=== PATIENT | male | born 1985 | race Caucasian/White ===

== ENCOUNTER 2024-02-24 17:09 | Inpatient (IN) | payer OTHER, MEDICAID ==
[~2024-02-24] VITALS: Ht 160 cm; Wt 77.6 kg
[2024-02-24] MEDS: ONDANSETRON HCL 4MG/2ML INJ IV STA (18:00)
[2024-02-24] MEDS: MORPHINE SULFATE 4 MG/ML INJ (FOR IV/IM USE) IV STA (18:00)
[2024-02-24 18:26] LABS: CHLORIDE 101 mEq/L (98-107); POTASSIUM 3.7 mEq/L (3.5-5.1); SODIUM 137 mEq/L (136-145)
[2024-02-24 18:27] LABS: CALCIUM 7.9 mg/dL (8.7-10.4); CARBON DIOXIDE 23 mEq/L (21-32)
[2024-02-24 18:32] LABS: CREATININE 2.2 mg/dL (0.6-1.3); GLUCOSE 141 mg/dL (70-105); UREA NITROGEN BLOOD 25 mg/dL (9-23)
[2024-02-24 18:33] LABS: AMMONIA 45 uMol/L (<32); ETHANOL BLOOD 300 mg/dL (<10)
[2024-02-24 18:34] LABS: ALANINE AMINOTRANSFERASE 26 IU/L (10-49); ALBUMIN 2.8 g/dL (3.2-4.8); ASPARTATE AMINOTRANSFERASE 133 IU/L (<34); BILIRUBIN DIRECT > 15.0 mg/dL (<=3.0)
[2024-02-24 18:35] LABS: BILIRUBIN TOTAL 25.8 mg/dL (0.1-1.0); TROPONIN I HIGH SENSITIVITY < 4 ng/L (3.0-53)
[2024-02-24 19:10] LABS: BASOPHILS % 0.3 % (0.0-2.0); DIFFERENTIAL COMMENT 0; EOSINOPHILS % 0.6 % (0.0-5.0); HEMATOCRIT. 33.2 % (42.0-52.0); HEMOGLOBIN. 11.5 g/dL (14.0-18.0); LYMPHOCYTES % 11.8 % (20.0-50.0); MEAN CORPUSCULAR HEMOGLOBIN 34.7 pg (28.0-32.0); MEAN CORPUSCULAR HGB CONC 34.5 g/dL (31.0-37.0); MEAN CORPUSCULAR VOLUME 100.4 fL (80.0-94.0); MONOCYTES % 1.5 % (2.0-8.0); NEUTROPHILS % 85.8 % (40.0-76.0); PLATELET 212 x1000/uL (130-400); RED BLOOD CELL COUNT 3.31 mill/uL (4.7-6.1); RED CELL DISTRIBUTION WIDTH 19.5 % (11.6-14.6); WHITE BLOOD COUNT 14.1 x1000/uL (4.5-11.0)
[2024-02-24] MEDS: CEFTRIAXONE 1GM/50ML 50 ML IV ONE (19:27)
[2024-02-24] MEDS: LACTULOSE 20G/30ML UDC PO ONE (20:00)
[2024-02-25 08:00] VITALS: BP 147/64; PULSE 74; TEMP 36.33624; O2SAT 98
[2024-02-25 12:00] VITALS: BP 140/67; PULSE 68; TEMP 36.72516; O2SAT 96
[2024-02-25 15:46] VITALS: BP 121/59; PULSE 111; RESP 16; TEMP 36.696
[2024-02-25 16:00] VITALS: BP_SYST 111; BP_SYST 127; BP_DIAS 62; BP_DIAS 73; PULSE 119; PULSE 90; RESP 18; TEMP 36.6696; O2SAT 97; O2SAT 98
[2024-02-25 18:34] LABS: HEPATITIS B SURFACE ANTIGEN NEGATIVE (Negative)
[2024-02-25 18:56] LABS: HEPATITIS C AB NON REACTIVE (Neg) (Negative)
[2024-02-25] MEDS: PIPERACILLIN/TAZO 3.375G/50ML 50 ML IV SCH (18:56)
[2024-02-25 20:00] VITALS: BP 111/65; PULSE 125; RESP 20; TEMP 37.503; O2SAT 98
[2024-02-25] MEDS: CHLORDIAZEPOXIDE 25MG CAPSULE PO SCH (21:19)
[2024-02-26] VITALS: BP 107/60; PULSE 129; RESP 19; RESP 20; TEMP 36.89184; O2SAT 97
[2024-02-26 04:00] VITALS: BP 106/55; PULSE 127; RESP 18; TEMP 36.78072; O2SAT 96
[2024-02-26 08:21] LABS: INR 1.3; PARTIAL THROMBOPLASTIN TIME 43.6 sec (23.4-31.0); PROTHROMBIN TIME 14.6 sec (9.6-11.0)
[2024-02-26 08:38] LABS: POTASSIUM 3.2 mEq/L (3.5-5.1)
[2024-02-26 08:39] LABS: CALCIUM 7.9 mg/dL (8.7-10.4)
[2024-02-26 08:58] VITALS: BP 102/60; PULSE 142; RESP 1; RESP 17; TEMP 37.00296; O2SAT 98
[2024-02-26] MEDS: DILTIAZEM HCL 30MG TABLET PO NR (09:02)
[2024-02-26 09:13] LABS: HEMATOCRIT. 27.6 % (42.0-52.0); HEMOGLOBIN. 9.7 g/dL (14.0-18.0); MEAN CORPUSCULAR HGB CONC 35.2 g/dL (31.0-37.0); MEAN CORPUSCULAR VOLUME 99.5 fL (80.0-94.0); MEAN PLATELET VOLUME 9.6 fl (7.4-10.4); PLATELET 118 x1000/uL (130-400); RED BLOOD CELL COUNT 2.77 mill/uL (4.7-6.1); RED CELL DISTRIBUTION WIDTH 19.5 % (11.6-14.6)
[2024-02-26 09:18] LABS: DIFFERENTIAL COMMENT 1
[2024-02-26 09:50] LABS: CREATININE 3.3 mg/dL (0.6-1.3)
[2024-02-26] MEDS: LORAZEPAM 1MG TABLET PO PRN (10:22)
[2024-02-26] MEDS: DEXT 5%/0.9% NACL 1,000 ML IV SCH (10:22)
[2024-02-26 12:00] VITALS: BP 100/51; PULSE 113; RESP 17; TEMP 37.00296; O2SAT 96
[2024-02-26] MEDS: DILTIAZEM HCL 30MG TABLET PO SCH (14:00)
[2024-02-26 15:33] VITALS: BP 101/52; PULSE 118; RESP 17; TEMP 36.89184
[2024-02-26] MEDS: AZITHROMYCIN 500 MG TABLET PO NR (15:44)
[2024-02-26] MEDS: POTASSIUM CHLORIDE 20MEQ TABLET SR PO NR (15:44)
[2024-02-26 15:55] LABS: CLARITY URINE CLOUDY (CLEAR); COLOR URINE DARK YELLOW (YELLOW); GLUCOSE URINE TRACE (NEGATIVE); KETONES URINE NEGATIVE (NEGATIVE); LEUKOCYTE ESTERASE URINE 1+ (NEGATIVE); NITRITE URINE POSITIVE (NEGATIVE); OCCULT BLOOD URINE TRACE (NEGATIVE); PH URINE 5.5 (4.5-8.0); PROTEIN URINE 1+ (NEGATIVE); SPECIFIC GRAVITY URINE 1.018 (1.005-1.030)
[2024-02-26 16:38] LABS: BACTERIA URINE 1+; RBC URINE 0-2 /hpf (0-2); SQUAMOUS EPITHELIAL CELL URINE 1+ /lpf (RARE/1+)
[2024-02-26 16:39] LABS: COARSE GRANULAR CASTS URINE 0-5 /lpf; FINE GRANULAR CASTS URINE 0-5 /lpf; RENAL EPITHELIAL CELLS URINE 1+ /lpf
[2024-02-26 20:00] VITALS: BP 100/48; PULSE 119; RESP 19; TEMP 37.39188
[2024-02-26 23:30] LABS: BODY FLUID RBC 975 /cu mm (0-2000); BODY FLUID WBC 2450 /cu mm (0-200)
[2024-02-26 23:31] LABS: BODY FLUID MONOCYTES 4 %
[2024-02-27 07:45] LABS: CHLORIDE 97 mEq/L (98-107); POTASSIUM 3.3 mEq/L (3.5-5.1); SODIUM 129 mEq/L (136-145)
[2024-02-27 07:46] LABS: CARBON DIOXIDE 22 mEq/L (21-32)
[2024-02-27 07:51] LABS: CREATININE 3.7 mg/dL (0.6-1.3); GLUCOSE 90 mg/dL (70-105); UREA NITROGEN BLOOD 50 mg/dL (9-23)
[2024-02-27 07:54] LABS: PHOSPHORUS 2.7 mg/dL (2.5-4.9)
[2024-02-27 08:00] VITALS: BP 105/54; PULSE 129; RESP 19; TEMP 37.66968; O2SAT 96
[2024-02-27 08:09] LABS: BASOPHILS % 1.9 % (0.0-2.0); EOSINOPHILS % 0.7 % (0.0-5.0); HEMATOCRIT. 28.6 % (42.0-52.0); HEMOGLOBIN. 10.1 g/dL (14.0-18.0); LYMPHOCYTES % 7.8 % (20.0-50.0); MEAN CORPUSCULAR HEMOGLOBIN 35.2 pg (28.0-32.0); MEAN CORPUSCULAR HGB CONC 35.4 g/dL (31.0-37.0); MEAN CORPUSCULAR VOLUME 99.5 fL (80.0-94.0); MEAN PLATELET VOLUME 9.4 fl (7.4-10.4); MONOCYTES % 9.5 % (2.0-8.0); NEUTROPHILS % 80.1 % (40.0-76.0); PLATELET 130 x1000/uL (130-400); RED BLOOD CELL COUNT 2.87 mill/uL (4.7-6.1); RED CELL DISTRIBUTION WIDTH 19.2 % (11.6-14.6)
[2024-02-27] MEDS: AZITHROMYCIN 250 MG TABLET PO SCH (10:23)
[2024-02-27] MEDS: POTASSIUM CHLORIDE 20MEQ TABLET SR PO NR (10:23)
[2024-02-27] MEDS: MULTIVITAMINS,THER W-MINERALS TABLET PO SCH (11:38)
[2024-02-27] MEDS: SODIUM CHLORIDE 0.9% 500 ML IV NR (11:38)
[2024-02-27] MEDS: THIAMINE HCL 100MG TABLET PO SCH (11:38)
[2024-02-27] MEDS: FOLIC ACID 1MG TABLET PO SCH (11:38)
[2024-02-27 12:00] VITALS: BP 98/55; PULSE 126; RESP 19; TEMP 38.00304; O2SAT 95
[2024-02-27] MEDS: ACETAMINOPHEN 325MG TABLET PO PRN (12:18)
[2024-02-27] MEDS: DILTIAZEM HCL 30MG TABLET PO SCH (14:00)
[2024-02-27 15:10] LABS: ANISOCYTOSIS 2+; PLATELET ESTIMATE SLIGHTLY DECREASED; TARGET CELLS 1+
[2024-02-27 16:00] VITALS: BP 111/63; PULSE 117; RESP 19; TEMP 37.503; O2SAT 97
[2024-02-27 16:50] LABS: AMMONIA 37 uMol/L (<32)
[2024-02-27] MEDS: LACTULOSE 20G/30ML UDC PO SCH (17:29)
[2024-02-27 20:00] VITALS: BP 105/63; PULSE 122; RESP 18; TEMP 37.11408; O2SAT 98
[2024-02-28] VITALS (9 sets, daily range): BP systolic 83–105; BP diastolic 39–63; PULSE 97–119; RESP 14–21; TEMP 36.61404–37.05852; O2SAT 95–100
[2024-02-28 07:09] LABS: AMMONIA 22 uMol/L (<32); INR 1.5; PROTHROMBIN TIME 16.5 sec (9.6-11.0)
[2024-02-28 07:24] LABS: CHLORIDE 101 mEq/L (98-107); POTASSIUM 3.1 mEq/L (3.5-5.1); SODIUM 131 mEq/L (136-145)
[2024-02-28 07:25] LABS: CALCIUM 7.5 mg/dL (8.7-10.4); CARBON DIOXIDE 15 mEq/L (21-32)
[2024-02-28 07:30] LABS: GLUCOSE 137 mg/dL (70-105)
[2024-02-28 07:31] LABS: UREA NITROGEN BLOOD 64 mg/dL (9-23)
[2024-02-28 07:32] LABS: ALANINE AMINOTRANSFERASE 25 IU/L (10-49); ALBUMIN 2.2 g/dL (3.2-4.8); ASPARTATE AMINOTRANSFERASE 70 IU/L (<34)
[2024-02-28 07:33] LABS: BILIRUBIN DIRECT > 15.0 mg/dL (<=3.0); BILIRUBIN TOTAL 25.1 mg/dL (0.1-1.0); PHOSPHORUS 4.1 mg/dL (2.5-4.9); PROTEIN TOTAL 6.3 g/dL (6.0-8.3)
[2024-02-28 08:09] LABS: BASOPHILS % 0.8 % (0.0-2.0); DIFFERENTIAL COMMENT 0; EOSINOPHILS % 1.2 % (0.0-5.0); HEMATOCRIT. 25.3 % (42.0-52.0); HEMOGLOBIN. 8.9 g/dL (14.0-18.0); LYMPHOCYTES % 7.8 % (20.0-50.0); MEAN CORPUSCULAR HEMOGLOBIN 35.2 pg (28.0-32.0); MEAN CORPUSCULAR HGB CONC 35.1 g/dL (31.0-37.0); MEAN CORPUSCULAR VOLUME 100.5 fL (80.0-94.0); MEAN PLATELET VOLUME 9.2 fl (7.4-10.4); MONOCYTES % 10.6 % (2.0-8.0); NEUTROPHILS % 79.6 % (40.0-76.0); PLATELET 114 x1000/uL (130-400); RED BLOOD CELL COUNT 2.52 mill/uL (4.7-6.1); RED CELL DISTRIBUTION WIDTH 19.7 % (11.6-14.6); WHITE BLOOD COUNT 16.6 x1000/uL (4.5-11.0)
[2024-02-28] MEDS: POTASSIUM CHLORIDE 20MEQ/PACKET PO NR (08:56)
[2024-02-28] MEDS: SODIUM BICARBONATE 650MG TABLET PO SCH (08:57)
[2024-02-28] MEDS: PIPERACILLIN/TAZO 3.375G/50ML 50 ML IV SCH (08:58)
[2024-02-28 09:42] LABS: CREATININE 5.4 mg/dL (0.6-1.3)
[2024-02-28] MEDS: PHYTONADIONE 10MG/ML INJ SUBCUT NR (11:42)
[2024-02-28] MEDS: MIDODRINE HCL 5MG TABLET PO SCH (11:42)
[2024-02-28] MEDS: ALBUMIN HUMAN 25GM/100ML (25%) IV NR (11:55)
[2024-02-28] MEDS: LACTULOSE 20G/30ML UDC PO SCH (12:10)
[2024-02-28 15:40] LABS: CREATINE KINASE 56 IU/L (46-171)
[2024-02-29] VITALS (24 sets, daily range): BP systolic 87–112; BP diastolic 36–67; PULSE 82–109; RESP 11–27; TEMP 35.8362–37.16964; O2SAT 96–100
[2024-02-29 08:44] LABS: CALCIUM 7.9 mg/dL (8.7-10.4); CARBON DIOXIDE 16 mEq/L (21-32); CHLORIDE 103 mEq/L (98-107); POTASSIUM 3.3 mEq/L (3.5-5.1); SODIUM 134 mEq/L (136-145)
[2024-02-29 08:49] LABS: IRON 123 ug/dL (65-175)
[2024-02-29 08:50] LABS: GLUCOSE 110 mg/dL (70-105); UREA NITROGEN BLOOD 73 mg/dL (9-23)
[2024-02-29 08:52] LABS: TOTAL IRON BINDING CAPACITY 209 ug/dl (250-425)
[2024-02-29 08:58] LABS: HEMATOCRIT. 28.2 % (42.0-52.0); HEMOGLOBIN. 9.7 g/dL (14.0-18.0); MEAN CORPUSCULAR HEMOGLOBIN 34.9 pg (28.0-32.0); MEAN CORPUSCULAR HGB CONC 34.5 g/dL (31.0-37.0); MEAN CORPUSCULAR VOLUME 101.2 fL (80.0-94.0); MEAN PLATELET VOLUME 9.3 fl (7.4-10.4); PLATELET 148 x1000/uL (130-400); RED BLOOD CELL COUNT 2.79 mill/uL (4.7-6.1); RED CELL DISTRIBUTION WIDTH 19.1 % (11.6-14.6); WHITE BLOOD COUNT 16.7 x1000/uL (4.5-11.0)
[2024-02-29 09:00] LABS: CREATININE 7.1 mg/dL (0.6-1.3)
[2024-02-29 09:00] LABS: DIFFERENTIAL COMMENT 1
[2024-02-29 09:08] LABS: FERRITIN 697 ng/mL (22-322)
[2024-02-29 09:09] LABS: FOLIC ACID (FOLATE) SERUM 8.92 ng/mL (>5.38)
[2024-02-29 09:10] LABS: VITAMIN B12 SERUM 1755 pg/mL (211-911)
[2024-02-29] MEDS: ALBUMIN HUMAN 25GM/100ML (25%) IV NR (10:18)
[2024-02-29] MEDS ORDERED: LIDOCAINE HCL 1% 10 MG/ML 10ML VIAL ONE (10:38)
[2024-02-29 11:02] LABS: INR 1.4; PROTHROMBIN TIME 15.1 sec (9.6-11.0)
[2024-02-29 11:07] LABS: HEMATOCRIT. 26.8 % (42.0-52.0); HEMOGLOBIN. 9.3 g/dL (14.0-18.0); MEAN CORPUSCULAR HEMOGLOBIN 35.4 pg (28.0-32.0); MEAN CORPUSCULAR HGB CONC 34.8 g/dL (31.0-37.0); MEAN CORPUSCULAR VOLUME 101.7 fL (80.0-94.0); MEAN PLATELET VOLUME 9.3 fl (7.4-10.4); PLATELET 131 x1000/uL (130-400); RED BLOOD CELL COUNT 2.64 mill/uL (4.7-6.1); RED CELL DISTRIBUTION WIDTH 19.7 % (11.6-14.6); WHITE BLOOD COUNT 14.2 x1000/uL (4.5-11.0)
[2024-02-29 11:09] LABS: CARBON DIOXIDE 16 mEq/L (21-32); CHLORIDE 102 mEq/L (98-107); POTASSIUM 3.2 mEq/L (3.5-5.1); SODIUM 133 mEq/L (136-145)
[2024-02-29 11:10] LABS: CALCIUM 7.7 mg/dL (8.7-10.4)
[2024-02-29 11:11] LABS: AMMONIA 26 uMol/L (<32)
[2024-02-29 11:14] LABS: DIFFERENTIAL COMMENT 1
[2024-02-29 11:15] LABS: GLUCOSE 172 mg/dL (70-105); UREA NITROGEN BLOOD 71 mg/dL (9-23)
[2024-02-29 11:16] LABS: ALANINE AMINOTRANSFERASE 29 IU/L (10-49); ALBUMIN 2.4 g/dL (3.2-4.8); ASPARTATE AMINOTRANSFERASE 75 IU/L (<34)
[2024-02-29 11:17] LABS: BILIRUBIN DIRECT > 15.0 mg/dL (<=3.0); BILIRUBIN TOTAL 28.4 mg/dL (0.1-1.0); PHOSPHORUS 6.1 mg/dL (2.5-4.9); PROTEIN TOTAL 6.5 g/dL (6.0-8.3)
[2024-02-29 11:38] LABS: CREATININE 6.7 mg/dL (0.6-1.3)
[2024-02-29 12:07] LABS: HEPATITIS B SURFACE ANTIGEN NEGATIVE (Negative)
[2024-02-29 12:27] LABS: HEPATITIS A AB IGM NEGATIVE (Negative)
[2024-02-29 12:28] LABS: HEPATITIS B CORE AB IGM NEGATIVE (Negative); HEPATITIS C AB NON REACTIVE (Neg) (Negative)
[2024-02-29 13:15] LABS: ANISOCYTOSIS 2+; PLATELET ESTIMATE NORMAL
[2024-02-29 14:42] LABS: ANISOCYTOSIS 1+; PLATELET ESTIMATE NORMAL; TARGET CELLS 1+
[2024-02-29] MEDS: PHYTONADIONE 10MG/ML INJ SUBCUT SCH (15:03)
[2024-03-01] VITALS (12 sets, daily range): BP systolic 91–135; BP diastolic 47–87; PULSE 84–99; RESP 11–21; TEMP 36.22512–36.89184; O2SAT 97–100
[2024-03-01 05:39] LABS: AMMONIA < 17 uMol/L (<32)
[2024-03-01 06:47] LABS: CALCIUM 7.9 mg/dL (8.7-10.4); CARBON DIOXIDE 24 mEq/L (21-32); CHLORIDE 102 mEq/L (98-107); POTASSIUM 3.3 mEq/L (3.5-5.1); SODIUM 138 mEq/L (136-145)
[2024-03-01 06:52] LABS: GLUCOSE 101 mg/dL (70-105)
[2024-03-01 06:53] LABS: UREA NITROGEN BLOOD 56 mg/dL (9-23)
[2024-03-01 06:55] LABS: PHOSPHORUS 5.3 mg/dL (2.5-4.9)
[2024-03-01 06:59] LABS: BILIRUBIN TOTAL 27.4 mg/dL (0.1-1.0)
[2024-03-01 07:00] LABS: CREATININE 6.2 mg/dL (0.6-1.3)
[2024-03-01 07:29] LABS: INR 1.3; PROTHROMBIN TIME 14.6 sec (9.6-11.0)
[2024-03-01 07:43] LABS: HEMATOCRIT. 25.8 % (42.0-52.0); HEMOGLOBIN. 9.1 g/dL (14.0-18.0); MEAN CORPUSCULAR HEMOGLOBIN 34.9 pg (28.0-32.0); MEAN CORPUSCULAR HGB CONC 35.1 g/dL (31.0-37.0); MEAN CORPUSCULAR VOLUME 99.4 fL (80.0-94.0); MEAN PLATELET VOLUME 9.4 fl (7.4-10.4); PLATELET 130 x1000/uL (130-400); RED CELL DISTRIBUTION WIDTH 19.6 % (11.6-14.6); WHITE BLOOD COUNT 13.7 x1000/uL (4.5-11.0)
[2024-03-01 08:13] LABS: DIFFERENTIAL COMMENT 1
[2024-03-01] MEDS: POTASSIUM CHLORIDE 20MEQ TABLET SR PO NR (12:45)
[2024-03-01 17:14] LABS: ANISOCYTOSIS 1+; TARGET CELLS 1+
[2024-03-01 17:15] LABS: PLATELET ESTIMATE NORMAL
[2024-03-02] VITALS (31 sets, daily range): BP systolic 74–104; BP diastolic 35–63; PULSE 84–116; RESP 12–24; TEMP 36.22512–36.6696; O2SAT 94–100
[2024-03-02] MEDS: MIDODRINE HCL 5MG TABLET PO SCH ×2 (05:31→08:37)
[2024-03-02 06:14] LABS: POTASSIUM 3.8 mEq/L (3.5-5.1)
[2024-03-02 06:43] LABS: CREATININE 6.9 mg/dL (0.6-1.3)
[2024-03-02 07:12] LABS: HEMOGLOBIN. 9.3 g/dL (14.0-18.0); MEAN CORPUSCULAR HGB CONC 34.5 g/dL (31.0-37.0); MEAN CORPUSCULAR VOLUME 101.4 fL (80.0-94.0); RED BLOOD CELL COUNT 2.67 mill/uL (4.7-6.1); WHITE BLOOD COUNT 13.2 x1000/uL (4.5-11.0)
[2024-03-02 07:46] LABS: DIFFERENTIAL COMMENT 1
[2024-03-02] MEDS: SODIUM CHLORIDE 0.9% 250 ML IV NR (08:44)
[2024-03-02] MEDS: SODIUM CHLORIDE 0.9% 250 ML IV ONE (11:38)
[2024-03-02 13:47] LABS: PLATELET 126 x1000/uL (130-400)
[2024-03-02 13:51] LABS: NUCLEATED RED BLOOD CELLS 2 /100 WBC; PLATELET ESTIMATE SLIGHTLY DECREASED
[2024-03-02 13:52] LABS: TARGET CELLS FEW
[2024-03-02 13:53] LABS: ANISOCYTOSIS 1+
[2024-03-02 16:41] LABS: AMMONIA 22 uMol/L (<32)
[2024-03-02] MEDS: PHENYLEPHRINE 100 MG in DEXT 5% WATER 240 ML IV PRN (20:17)
[2024-03-02] MEDS: PIPERACILLIN/TAZO 3.375G/100ML 100 ML IV SCH (22:44)
[2024-03-03] VITALS (96 sets, daily range): BP systolic 81–152; BP diastolic 29–129; PULSE 82–104; RESP 10–39; TEMP 36.114–37.2252; O2SAT 93–100
[2024-03-03 06:08] LABS: POTASSIUM 3.9 mEq/L (3.5-5.1)
[2024-03-03 06:10] LABS: CALCIUM 8.3 mg/dL (8.7-10.4)
[2024-03-03 06:16] LABS: BASOPHILS % 0.9 % (0.0-2.0); EOSINOPHILS % 1.8 % (0.0-5.0); HEMOGLOBIN. 8.9 g/dL (14.0-18.0); LYMPHOCYTES % 16.9 % (20.0-50.0); MEAN CORPUSCULAR VOLUME 102.8 fL (80.0-94.0); MEAN PLATELET VOLUME 9.5 fl (7.4-10.4); MONOCYTES % 13.3 % (2.0-8.0); NEUTROPHILS % 67.1 % (40.0-76.0); PLATELET 141 x1000/uL (130-400); RED BLOOD CELL COUNT 2.53 mill/uL (4.7-6.1); RED CELL DISTRIBUTION WIDTH 20.1 % (11.6-14.6); WHITE BLOOD COUNT 14.4 x1000/uL (4.5-11.0)
[2024-03-03 06:18] LABS: DIFFERENTIAL COMMENT 1
[2024-03-03 06:29] LABS: CREATININE 8.8 mg/dL (0.6-1.3)
[2024-03-03] MEDS: OCTREOTIDE 1,000 MCG in SODIUM CHLORIDE 0.9% 98 ML IV SCH (16:56)
[2024-03-03] MEDS: LACTULOSE 20G/30ML UDC PO SCH (21:55)
[2024-03-03] MEDS: PIPERACILLIN/TAZO 3.375G/50ML 50 ML IV SCH (21:59)
[2024-03-03] MEDS: VASOPRESSIN 20 UNIT in SODIUM CHLORIDE 0.9% 99 ML IV PRN (22:26)
[2024-03-04] VITALS (82 sets, daily range): BP systolic 63–123; BP diastolic 33–100; PULSE 65–87; RESP 10–29; TEMP 36.33624–37.16964; O2SAT 94–99
[2024-03-04 05:29] LABS: HEMATOCRIT. 26.3 % (42.0-52.0); HEMOGLOBIN. 9.1 g/dL (14.0-18.0); MEAN CORPUSCULAR HEMOGLOBIN 34.9 pg (28.0-32.0); MEAN CORPUSCULAR HGB CONC 34.8 g/dL (31.0-37.0); MEAN CORPUSCULAR VOLUME 100.5 fL (80.0-94.0); MEAN PLATELET VOLUME 8.9 fl (7.4-10.4); PLATELET 143 x1000/uL (130-400); RED BLOOD CELL COUNT 2.61 mill/uL (4.7-6.1); WHITE BLOOD COUNT 16.9 x1000/uL (4.5-11.0)
[2024-03-04 05:35] LABS: CALCIUM 8.5 mg/dL (8.7-10.4)
[2024-03-04 05:42] LABS: BILIRUBIN TOTAL 23.7 mg/dL (0.1-1.0)
[2024-03-04 05:42] LABS: AMMONIA < 17 uMol/L (<32)
[2024-03-04 05:45] LABS: DIFFERENTIAL COMMENT 1
[2024-03-04 06:01] LABS: INR 1.3; PROTHROMBIN TIME 14.2 sec (9.6-11.0)
[2024-03-04 06:42] LABS: CREATININE 6.5 mg/dL (0.6-1.3)
[2024-03-04] MEDS: MEROPENEM 500MG/50ML 50 ML IV SCH (15:00)
[2024-03-04 16:45] LABS: ANISOCYTOSIS 2+; PLATELET ESTIMATE NORMAL; TARGET CELLS 1+
[2024-03-05] VITALS (87 sets, daily range): BP systolic 76–107; BP diastolic 35–76; PULSE 73–97; RESP 11–24; TEMP 36.3918–37.2252; O2SAT 92–99
[2024-03-05 06:31] LABS: HEMATOCRIT. 24.7 % (42.0-52.0); HEMOGLOBIN. 8.6 g/dL (14.0-18.0); MEAN CORPUSCULAR HEMOGLOBIN 35.5 pg (28.0-32.0); MEAN CORPUSCULAR HGB CONC 34.7 g/dL (31.0-37.0); MEAN CORPUSCULAR VOLUME 102.1 fL (80.0-94.0); RED BLOOD CELL COUNT 2.42 mill/uL (4.7-6.1); RED CELL DISTRIBUTION WIDTH 20.4 % (11.6-14.6)
[2024-03-05 06:40] LABS: CARBON DIOXIDE 22 mEq/L (21-32); CHLORIDE 96 mEq/L (98-107); SODIUM 132 mEq/L (136-145)
[2024-03-05 06:41] LABS: CALCIUM 8.3 mg/dL (8.7-10.4)
[2024-03-05 06:46] LABS: GLUCOSE 121 mg/dL (70-105); UREA NITROGEN BLOOD 59 mg/dL (9-23)
[2024-03-05 06:47] LABS: ALANINE AMINOTRANSFERASE 51 IU/L (10-49); ALBUMIN 2.4 g/dL (3.2-4.8)
[2024-03-05 06:48] LABS: ASPARTATE AMINOTRANSFERASE 125 IU/L (<34); BILIRUBIN DIRECT > 15.0 mg/dL (<=3.0); BILIRUBIN TOTAL 23.7 mg/dL (0.1-1.0)
[2024-03-05 07:01] LABS: DIFFERENTIAL COMMENT 1
[2024-03-05 07:08] LABS: CREATININE 8.4 mg/dL (0.6-1.3)
[2024-03-05 11:02] LABS: PLATELET ESTIMATE NORMAL
[2024-03-05 11:03] LABS: ANISOCYTOSIS 2+; TARGET CELLS 2+
[2024-03-05] MEDS: RISPERIDONE 0.25MG TABLET PO SCH (13:50)
[2024-03-05 15:50] LABS: MEAN PLATELET VOLUME 8.8 fl (7.4-10.4); PLATELET 137 x1000/uL (130-400)
[2024-03-06] VITALS (95 sets, daily range): BP systolic 62–111; BP diastolic 37–77; PULSE 78–101; RESP 10–22; TEMP 36.16956–36.89184; O2SAT 91–100
[2024-03-06 07:58] LABS: POTASSIUM 4.2 mEq/L (3.5-5.1)
[2024-03-06 07:59] LABS: CALCIUM 8.4 mg/dL (8.7-10.4)
[2024-03-06 08:07] LABS: HEMATOCRIT. 23.2 % (42.0-52.0); HEMOGLOBIN. 8.2 g/dL (14.0-18.0); MEAN CORPUSCULAR HEMOGLOBIN 35.6 pg (28.0-32.0); MEAN CORPUSCULAR HGB CONC 35.1 g/dL (31.0-37.0); MEAN CORPUSCULAR VOLUME 101.4 fL (80.0-94.0); MEAN PLATELET VOLUME 8.9 fl (7.4-10.4); PLATELET 140 x1000/uL (130-400); RED BLOOD CELL COUNT 2.29 mill/uL (4.7-6.1); WHITE BLOOD COUNT 15.3 x1000/uL (4.5-11.0)
[2024-03-06 08:11] LABS: DIFFERENTIAL COMMENT 1
[2024-03-06 08:40] LABS: CREATININE 7.4 mg/dL (0.6-1.3)
[2024-03-06 08:47] LABS: BG BASE EXCESS -2.7 mmol/L (-2.0-3.0); BG CARBOXYHEMOGLOBIN 2.9 % (0.5-1.5); BG DEOXYHEMOGLOBIN 5.8 % (0.0-5.0); BG FRACTION INSPIRED OXYGEN 21; BG HCO3 ACT 21.7 mmol/L (21.0-28.0); BG METHEMOGLOBIN 0.3 % (0.5-1.5); BG PCO2 35.3 mmHg (35.0-48.0); BG PH 7.406 (7.350-7.450); BG PO2 73.4 mmHg (83.0-108.0); BG SAMPLE SITE LEFT BRACHIAL; BG TOTAL HEMOGLOBIN 8.2 g/dL (13.5-17.5); BG VENT MODE ROOM AIR
[2024-03-06 10:23] LABS: NUCLEATED RED BLOOD CELLS 1 /100 WBC
[2024-03-06 10:24] LABS: ANISOCYTOSIS 2+; PLATELET ESTIMATE NORMAL; TARGET CELLS 1+
[2024-03-06 10:43] LABS: AMMONIA < 17 uMol/L (<32)
[2024-03-06 10:57] LABS: ALANINE AMINOTRANSFERASE 69 IU/L (10-49); ALBUMIN 2.5 g/dL (3.2-4.8); ASPARTATE AMINOTRANSFERASE 167 IU/L (<34); BILIRUBIN TOTAL 27.2 mg/dL (0.1-1.0)
[2024-03-06] MEDS: FAMOTIDINE 20MG/2ML VIAL IV SCH (12:26)
[2024-03-06] MEDS: HEPARIN 5000 UNITS/ML VIAL SUBCUT SCH (12:26)
[2024-03-07] VITALS (64 sets, daily range): BP systolic 81–117; BP diastolic 44–79; PULSE 77–99; RESP 10–23; TEMP 36.3918–37.00296; O2SAT 83–100
[2024-03-07 06:21] LABS: POTASSIUM 4.1 mEq/L (3.5-5.1)
[2024-03-07 06:23] LABS: CALCIUM 8.7 mg/dL (8.7-10.4)
[2024-03-07 06:24] LABS: HEMATOCRIT. 22.7 % (42.0-52.0); MEAN CORPUSCULAR HEMOGLOBIN 35.8 pg (28.0-32.0); MEAN CORPUSCULAR HGB CONC 35.1 g/dL (31.0-37.0); MEAN CORPUSCULAR VOLUME 101.9 fL (80.0-94.0); RED BLOOD CELL COUNT 2.22 mill/uL (4.7-6.1); RED CELL DISTRIBUTION WIDTH 20.7 % (11.6-14.6); WHITE BLOOD COUNT 13.9 x1000/uL (4.5-11.0)
[2024-03-07 06:36] LABS: CREATININE 8.2 mg/dL (0.6-1.3)
[2024-03-07 07:38] LABS: DIFFERENTIAL COMMENT 1
[2024-03-07 10:09] LABS: ANISOCYTOSIS 2+; MEAN PLATELET VOLUME 8.9 fl (7.4-10.4); PLATELET 128 x1000/uL (130-400); PLATELET ESTIMATE NORMAL
[2024-03-08] VITALS (100 sets, daily range): BP systolic 80–112; BP diastolic 30–78; PULSE 76–99; RESP 11–23; TEMP 36.61404–37.16964; O2SAT 91–100
[2024-03-08 05:58] LABS: CALCIUM 8.1 mg/dL (8.7-10.4); POTASSIUM 4.1 mEq/L (3.5-5.1)
[2024-03-08 06:25] LABS: CREATININE 7.4 mg/dL (0.6-1.3)
[2024-03-08 08:57] LABS: DIFFERENTIAL COMMENT 1; HEMATOCRIT. 22.9 % (42.0-52.0); MEAN CORPUSCULAR HEMOGLOBIN 35.7 pg (28.0-32.0); MEAN CORPUSCULAR HGB CONC 34.8 g/dL (31.0-37.0); MEAN CORPUSCULAR VOLUME 102.6 fL (80.0-94.0); RED BLOOD CELL COUNT 2.23 mill/uL (4.7-6.1); RED CELL DISTRIBUTION WIDTH 20.4 % (11.6-14.6)
[2024-03-08 13:48] LABS: PLATELET 109 x1000/uL (130-400)
[2024-03-08 13:57] LABS: PLATELET ESTIMATE SLIGHTLY DECREASED; ROULEAUX 1+
[2024-03-08 13:58] LABS: ANISOCYTOSIS 1+
[2024-03-09] VITALS (97 sets, daily range): BP systolic 85–129; BP diastolic 38–92; PULSE 74–103; RESP 10–37; TEMP 36.61404–37.11408; O2SAT 92–100
[2024-03-09 05:54] LABS: AMMONIA 19 uMol/L (<32)
[2024-03-09 05:56] LABS: CHLORIDE 97 mEq/L (98-107); POTASSIUM 4.4 mEq/L (3.5-5.1); SODIUM 130 mEq/L (136-145)
[2024-03-09 05:57] LABS: CALCIUM 8.5 mg/dL (8.7-10.4); CARBON DIOXIDE 20 mEq/L (21-32)
[2024-03-09 05:58] LABS: HEMOGLOBIN. 8.7 g/dL (14.0-18.0); MEAN CORPUSCULAR HEMOGLOBIN 35.9 pg (28.0-32.0); MEAN CORPUSCULAR VOLUME 102.5 fL (80.0-94.0); RED BLOOD CELL COUNT 2.44 mill/uL (4.7-6.1)
[2024-03-09 06:02] LABS: GLUCOSE 88 mg/dL (70-105); UREA NITROGEN BLOOD 53 mg/dL (9-23)
[2024-03-09 06:04] LABS: ALANINE AMINOTRANSFERASE 41 IU/L (10-49); ALBUMIN 2.2 g/dL (3.2-4.8); ASPARTATE AMINOTRANSFERASE 111 IU/L (<34); BILIRUBIN DIRECT > 15.0 mg/dL (<=3.0); BILIRUBIN TOTAL 23.8 mg/dL (0.1-1.0); PROTEIN TOTAL 6.7 g/dL (6.0-8.3)
[2024-03-09 06:06] LABS: CREATININE 8.4 mg/dL (0.6-1.3)
[2024-03-09 07:35] LABS: INDEX HEMOLYSI 3 (1-3)
[2024-03-09 07:48] LABS: DIFFERENTIAL COMMENT 1
[2024-03-09 11:52] LABS: PLATELET 121 x1000/uL (130-400)
[2024-03-09 11:59] LABS: ATYPICAL LYMPHOCYTES 1; PLATELET ESTIMATE SLIGHTLY DECREASED; ROULEAUX 1+
[2024-03-09 12:00] LABS: ANISOCYTOSIS 1+
[2024-03-09] MEDS: SODIUM CHLORIDE 0.9% 1,000 ML IV SCH (14:00)
[2024-03-09] MEDS: OCTREOTIDE 1,000 MCG in SODIUM CHLORIDE 0.9% 98 ML IV SCH (15:15)
[2024-03-09] MEDS: ONDANSETRON HCL 4MG/2ML INJ IV PRN (22:30)
[2024-03-10] VITALS (100 sets, daily range): BP systolic 86–127; BP diastolic 33–83; PULSE 74–103; RESP 7–34; TEMP 36.61404–37.05852; O2SAT 89–100
[2024-03-10] MEDS: HYDROCODONE/ACETAMINOPHEN 10/325MG TABLET PO PRN (00:13)
[2024-03-10] MEDS ORDERED: NALOXONE HCL 0.4MG/ML VIAL IV PRN (00:15)
[2024-03-10 05:53] LABS: HEMATOCRIT. 23.2 % (42.0-52.0); HEMOGLOBIN. 8.1 g/dL (14.0-18.0); MEAN CORPUSCULAR HEMOGLOBIN 35.6 pg (28.0-32.0); MEAN CORPUSCULAR HGB CONC 34.8 g/dL (31.0-37.0); MEAN CORPUSCULAR VOLUME 102.1 fL (80.0-94.0); RED BLOOD CELL COUNT 2.27 mill/uL (4.7-6.1); RED CELL DISTRIBUTION WIDTH 20.9 % (11.6-14.6); WHITE BLOOD COUNT 16.6 x1000/uL (4.5-11.0)
[2024-03-10 06:06] LABS: CALCIUM 8.2 mg/dL (8.7-10.4); CARBON DIOXIDE 19 mEq/L (21-32); CHLORIDE 98 mEq/L (98-107); POTASSIUM 4.3 mEq/L (3.5-5.1); SODIUM 130 mEq/L (136-145)
[2024-03-10 06:12] LABS: GLUCOSE 139 mg/dL (70-105)
[2024-03-10 06:15] LABS: BILIRUBIN TOTAL 23.6 mg/dL (0.1-1.0)
[2024-03-10 06:25] LABS: CREATININE 8.6 mg/dL (0.6-1.3); UREA NITROGEN BLOOD 49 mg/dL (9-23)
[2024-03-10 06:44] LABS: DIFFERENTIAL COMMENT 1
[2024-03-10 11:05] LABS: ANISOCYTOSIS 2+
[2024-03-10 11:07] LABS: PLATELET ESTIMATE DECREASED
[2024-03-10 11:08] LABS: MEAN PLATELET VOLUME 9.1 fl (7.4-10.4); PLATELET 98 x1000/uL (130-400)
[2024-03-11] VITALS (96 sets, daily range): BP systolic 75–115; BP diastolic 38–71; PULSE 77–115; RESP 7–32; TEMP 36.28068–36.6696; O2SAT 85–100
[2024-03-11 05:54] LABS: MEAN CORPUSCULAR HEMOGLOBIN 35.8 pg (28.0-32.0); MEAN CORPUSCULAR HGB CONC 34.3 g/dL (31.0-37.0); MEAN CORPUSCULAR VOLUME 104.5 fL (80.0-94.0); RED BLOOD CELL COUNT 1.96 mill/uL (4.7-6.1); RED CELL DISTRIBUTION WIDTH 21.4 % (11.6-14.6)
[2024-03-11 05:55] LABS: CHLORIDE 99 mEq/L (98-107); POTASSIUM 4.9 mEq/L (3.5-5.1); SODIUM 129 mEq/L (136-145)
[2024-03-11 05:56] LABS: CARBON DIOXIDE 19 mEq/L (21-32)
[2024-03-11 05:57] LABS: CALCIUM 8.5 mg/dL (8.7-10.4)
[2024-03-11 06:02] LABS: GLUCOSE 107 mg/dL (70-105); UREA NITROGEN BLOOD 57 mg/dL (9-23)
[2024-03-11 06:03] LABS: ALANINE AMINOTRANSFERASE 35 IU/L (10-49); ALBUMIN 2.2 g/dL (3.2-4.8); ASPARTATE AMINOTRANSFERASE 115 IU/L (<34)
[2024-03-11 06:04] LABS: BILIRUBIN TOTAL 23.5 mg/dL (0.1-1.0); PROTEIN TOTAL 7.1 g/dL (6.0-8.3)
[2024-03-11 06:10] LABS: AMMONIA 17 uMol/L (<32)
[2024-03-11 07:12] LABS: DIFFERENTIAL COMMENT 1
[2024-03-11 07:18] LABS: HEMATOCRIT. 20.5 % (42.0-52.0)
[2024-03-11 07:55] LABS: BILIRUBIN DIRECT 15.6 mg/dL (<=3.0)
[2024-03-11 07:56] LABS: CREATININE 9.5 mg/dL (0.6-1.3)
[2024-03-11 07:57] LABS: PLATELET 106 x1000/uL (130-400)
[2024-03-11 08:04] LABS: PLATELET ESTIMATE SLIGHTLY DECREASED; ROULEAUX 1+; TOXIC VACUOLATION FEW
[2024-03-11 08:06] LABS: ANISOCYTOSIS 1+
[2024-03-11 13:15] LABS: MEAN CORPUSCULAR HEMOGLOBIN 35.8 pg (28.0-32.0); MEAN CORPUSCULAR HGB CONC 34.7 g/dL (31.0-37.0); MEAN CORPUSCULAR VOLUME 103.2 fL (80.0-94.0); MEAN PLATELET VOLUME 9.5 fl (7.4-10.4); PLATELET 86 x1000/uL (130-400); RED BLOOD CELL COUNT 1.94 mill/uL (4.7-6.1); RED CELL DISTRIBUTION WIDTH 21.4 % (11.6-14.6); WHITE BLOOD COUNT 16.9 x1000/uL (4.5-11.0)
[2024-03-11 13:25] LABS: DIFFERENTIAL COMMENT 1
[2024-03-11 13:29] LABS: HEMOGLOBIN. 6.9 g/dL (14.0-18.0)
[2024-03-11 14:15] LABS: ANISOCYTOSIS 3+; PLATELET ESTIMATE DECREASED
[2024-03-11] MEDS: PHENYLEPHRINE 100 MG in SODIUM CHLORIDE 0.9% 240 ML IV PRN (20:45)
[2024-03-11 22:13] LABS: HEMATOCRIT 22.5 % (42.0-52.0); HEMOGLOBIN 8.1 g/dL (14.0-18.0)
[2024-03-12] VITALS (96 sets, daily range): BP systolic 82–128; BP diastolic 50–79; PULSE 72–98; RESP 7–24; TEMP 36.61404–36.89184; O2SAT 86–100
[2024-03-12] MEDS: HYDROXYZINE 25MG TABLET PO NR (00:08)
[2024-03-12] MEDS: GABAPENTIN 100MG CAPSULE PO NR (00:08)
[2024-03-12 06:37] LABS: POTASSIUM 4.4 mEq/L (3.5-5.1)
[2024-03-12 06:39] LABS: CALCIUM 8.1 mg/dL (8.7-10.4)
[2024-03-12 07:09] LABS: CREATININE 8.5 mg/dL (0.6-1.3)
[2024-03-12 08:07] LABS: OVA & PARASITE EXAM Final report (.)
[2024-03-12 08:40] LABS: HEMATOCRIT. 23.3 % (42.0-52.0); HEMOGLOBIN. 8.1 g/dL (14.0-18.0); MEAN CORPUSCULAR HGB CONC 34.7 g/dL (31.0-37.0); MEAN CORPUSCULAR VOLUME 100.7 fL (80.0-94.0); MEAN PLATELET VOLUME 9.5 fl (7.4-10.4); RED BLOOD CELL COUNT 2.31 mill/uL (4.7-6.1); RED CELL DISTRIBUTION WIDTH 20.2 % (11.6-14.6); WHITE BLOOD COUNT 13.3 x1000/uL (4.5-11.0)
[2024-03-12 08:59] LABS: DIFFERENTIAL COMMENT 1
[2024-03-12 12:25] LABS: ANISOCYTOSIS 2+; PLATELET ESTIMATE DECREASED
[2024-03-12 12:27] LABS: PLATELET 89 x1000/uL (130-400)
[2024-03-12] MEDS: MEROPENEM 500MG/50ML IV SCH (14:38)
[2024-03-13] VITALS (107 sets, daily range): BP systolic 65–146; BP diastolic 37–121; PULSE 72–113; RESP 4–28; TEMP 36.22512–36.83628; O2SAT 70–98
[2024-03-13 06:41] LABS: INR 1.4
[2024-03-13 06:45] LABS: BASOPHILS % 0.6 % (0.0-2.0); EOSINOPHILS % 2.7 % (0.0-5.0); HEMATOCRIT. 22.4 % (42.0-52.0); HEMOGLOBIN. 7.9 g/dL (14.0-18.0); LYMPHOCYTES % 12.2 % (20.0-50.0); MEAN CORPUSCULAR HEMOGLOBIN 35.8 pg (28.0-32.0); MEAN CORPUSCULAR HGB CONC 35.2 g/dL (31.0-37.0); MEAN CORPUSCULAR VOLUME 101.7 fL (80.0-94.0); MONOCYTES % 13.7 % (2.0-8.0); NEUTROPHILS % 70.8 % (40.0-76.0); RED CELL DISTRIBUTION WIDTH 20.9 % (11.6-14.6); WHITE BLOOD COUNT 13.2 x1000/uL (4.5-11.0)
[2024-03-13 06:52] LABS: DIFFERENTIAL COMMENT 1
[2024-03-13 07:05] LABS: CHLORIDE 98 mEq/L (98-107); POTASSIUM 4.7 mEq/L (3.5-5.1); SODIUM 130 mEq/L (136-145)
[2024-03-13 07:06] LABS: CALCIUM 8.2 mg/dL (8.7-10.4); CARBON DIOXIDE 20 mEq/L (21-32)
[2024-03-13 07:11] LABS: AMMONIA 58 uMol/L (<32); GLUCOSE 116 mg/dL (70-105); UREA NITROGEN BLOOD 57 mg/dL (9-23)
[2024-03-13 07:12] LABS: ALANINE AMINOTRANSFERASE 37 IU/L (10-49)
[2024-03-13 07:13] LABS: ALBUMIN 2.2 g/dL (3.2-4.8); ASPARTATE AMINOTRANSFERASE 132 IU/L (<34); BILIRUBIN TOTAL 22.7 mg/dL (0.1-1.0); PROTEIN TOTAL 6.9 g/dL (6.0-8.3)
[2024-03-13 07:24] LABS: CREATININE 9.2 mg/dL (0.6-1.3)
[2024-03-13] MEDS: LORAZEPAM 2MG/ML INJ IV PRN (08:07)
[2024-03-13] MEDS: RISPERIDONE 0.25MG TABLET PO SCH (11:16)
[2024-03-13 15:33] LABS: MEAN PLATELET VOLUME 8.9 fl (7.4-10.4); PLATELET 91 x1000/uL (130-400)
[2024-03-14] VITALS (108 sets, daily range): BP systolic 70–122; BP diastolic 40–78; PULSE 74–110; RESP 5–25; TEMP 36.3918–36.83628; O2SAT 87–100
[2024-03-14] MEDS: PHENYLEPHRINE 100 MG in DEXT 5% WATER 240 ML IV PRN (05:17)
[2024-03-14 06:43] LABS: INR 1.4; PROTHROMBIN TIME 15.1 sec (9.6-11.0)
[2024-03-14 06:54] LABS: POTASSIUM 4.7 mEq/L (3.5-5.1)
[2024-03-14 06:55] LABS: CALCIUM 8.5 mg/dL (8.7-10.4)
[2024-03-14 07:03] LABS: AMMONIA 39 uMol/L (<32)
[2024-03-14 07:08] LABS: HEMATOCRIT. 24.1 % (42.0-52.0); HEMOGLOBIN. 8.2 g/dL (14.0-18.0); MEAN CORPUSCULAR HEMOGLOBIN 36.1 pg (28.0-32.0); MEAN CORPUSCULAR HGB CONC 34.2 g/dL (31.0-37.0); MEAN CORPUSCULAR VOLUME 105.6 fL (80.0-94.0); RED BLOOD CELL COUNT 2.28 mill/uL (4.7-6.1); WHITE BLOOD COUNT 13.7 x1000/uL (4.5-11.0)
[2024-03-14 07:30] LABS: DIFFERENTIAL COMMENT 1
[2024-03-14 07:34] LABS: CREATININE 8.5 mg/dL (0.6-1.3)
[2024-03-14 09:22] LABS: ANISOCYTOSIS 3+; PLATELET ESTIMATE SLIGHTLY DECREASED
[2024-03-14 09:23] LABS: MEAN PLATELET VOLUME 9.4 fl (7.4-10.4); PLATELET 71 x1000/uL (130-400)
[2024-03-14] MEDS: PHYTONADIONE 10MG/ML INJ SUBCUT NR (11:58)
[2024-03-14] MEDS: PHENYLEPHRINE 100 MG in SODIUM CHLORIDE 0.9% 240 ML IV PRN (12:08)
[2024-03-14 18:22] LABS: CHLORIDE 102 mEq/L (98-107); POTASSIUM 4.7 mEq/L (3.5-5.1); SODIUM 133 mEq/L (136-145)
[2024-03-14 18:23] LABS: CALCIUM 8.5 mg/dL (8.7-10.4); CARBON DIOXIDE 20 mEq/L (21-32)
[2024-03-14 18:28] LABS: GLUCOSE 147 mg/dL (70-105); UREA NITROGEN BLOOD 48 mg/dL (9-23)
[2024-03-14 18:29] LABS: ALBUMIN 2.2 g/dL (3.2-4.8)
[2024-03-14 18:30] LABS: ALANINE AMINOTRANSFERASE 31 IU/L (10-49); ASPARTATE AMINOTRANSFERASE 121 IU/L (<34); BILIRUBIN TOTAL 20.7 mg/dL (0.1-1.0); PROTEIN TOTAL 6.9 g/dL (6.0-8.3)
[2024-03-14 18:33] LABS: CREATININE 9.3 mg/dL (0.6-1.3)
[2024-03-14] MEDS: RIFAXIMIN 550 MG TABLET PO SCH (21:31)
[2024-03-14] MEDS: LORAZEPAM 2MG/ML INJ IV ONE (23:39)
[2024-03-15] VITALS (61 sets, daily range): BP systolic 81–112; BP diastolic 41–69; PULSE 68–97; RESP 3–16; TEMP 36.3918–36.61404; O2SAT 97–100
[2024-03-15 05:51] LABS: BASOPHILS % 0.7 % (0.0-2.0); LYMPHOCYTES % 11.4 % (20.0-50.0); MEAN CORPUSCULAR HEMOGLOBIN 36.4 pg (28.0-32.0); MEAN CORPUSCULAR HGB CONC 35.4 g/dL (31.0-37.0); MEAN CORPUSCULAR VOLUME 102.7 fL (80.0-94.0); MEAN PLATELET VOLUME 8.6 fl (7.4-10.4); MONOCYTES % 14.3 % (2.0-8.0); NEUTROPHILS % 71.6 % (40.0-76.0); RED BLOOD CELL COUNT 1.89 mill/uL (4.7-6.1); RED CELL DISTRIBUTION WIDTH 21.1 % (11.6-14.6); WHITE BLOOD COUNT 10.8 x1000/uL (4.5-11.0)
[2024-03-15 05:57] LABS: POTASSIUM 4.1 mEq/L (3.5-5.1)
[2024-03-15 05:59] LABS: CALCIUM 7.9 mg/dL (8.7-10.4)
[2024-03-15 06:12] LABS: INR 1.4; PROTHROMBIN TIME 15.6 sec (9.6-11.0)
[2024-03-15 09:11] LABS: DIFFERENTIAL COMMENT 1
[2024-03-15 09:14] LABS: HEMATOCRIT. 19.4 % (42.0-52.0); HEMOGLOBIN. 6.9 g/dL (14.0-18.0)
[2024-03-15 09:15] LABS: ADD RBC MORPHOLOGY YES
[2024-03-15] MEDS: PHYTONADIONE 10MG/ML INJ SUBCUT SCH (13:03)
[2024-03-15 14:50] LABS: PLATELET 45 x1000/uL (130-400)
[2024-03-15 14:52] LABS: ANISOCYTOSIS 3+; PLATELET ESTIMATE MARKEDLY DECREASED
[2024-03-15 17:51] LABS: MEAN CORPUSCULAR HEMOGLOBIN 36.2 pg (28.0-32.0); MEAN CORPUSCULAR HGB CONC 34.9 g/dL (31.0-37.0); MEAN CORPUSCULAR VOLUME 103.7 fL (80.0-94.0); PLATELET 55 x1000/uL (130-400); RED BLOOD CELL COUNT 1.92 mill/uL (4.7-6.1); RED CELL DISTRIBUTION WIDTH 21.3 % (11.6-14.6)
[2024-03-15 17:56] LABS: HEMATOCRIT 19.9 % (42.0-52.0); HEMOGLOBIN 6.9 g/dL (14.0-18.0)
[2024-03-15 18:37] LABS: AMMONIA 52 uMol/L (<32)
[2024-03-15] MEDS: PHENYLEPHRINE 100 MG in DEXT 5% WATER 240 ML IV PRN (22:16)
[2024-03-16] VITALS (110 sets, daily range): BP systolic 72–111; BP diastolic 35–72; PULSE 67–121; RESP 7–29; TEMP 36.44736–37.33632; O2SAT 90–100
[2024-03-16 06:15] LABS: POTASSIUM 4.8 mEq/L (3.5-5.1)
[2024-03-16 06:16] LABS: CALCIUM 8.1 mg/dL (8.7-10.4)
[2024-03-16 06:40] LABS: BASOPHILS % 0.2 % (0.0-2.0); EOSINOPHILS % 1.9 % (0.0-5.0); HEMATOCRIT. 25.1 % (42.0-52.0); HEMOGLOBIN. 8.8 g/dL (14.0-18.0); LYMPHOCYTES % 10.6 % (20.0-50.0); MEAN CORPUSCULAR HEMOGLOBIN 35.7 pg (28.0-32.0); MEAN CORPUSCULAR HGB CONC 35.2 g/dL (31.0-37.0); MEAN CORPUSCULAR VOLUME 101.2 fL (80.0-94.0); MONOCYTES % 14.2 % (2.0-8.0); NEUTROPHILS % 73.1 % (40.0-76.0); RED BLOOD CELL COUNT 2.48 mill/uL (4.7-6.1); RED CELL DISTRIBUTION WIDTH 20.7 % (11.6-14.6); WHITE BLOOD COUNT 10.3 x1000/uL (4.5-11.0)
[2024-03-16 06:45] LABS: CREATININE 7.9 mg/dL (0.6-1.3)
[2024-03-16 08:12] LABS: DIFFERENTIAL COMMENT 1
[2024-03-16] MEDS: LACTULOSE 20G/30ML UDC PO SCH (09:35)
[2024-03-16 11:47] LABS: PLATELET 73 x1000/uL (130-400)
[2024-03-17] VITALS (88 sets, daily range): BP systolic 84–114; BP diastolic 41–83; PULSE 71–98; RESP 8–21; TEMP 36.3918–37.16964; O2SAT 90–99
[2024-03-17 05:38] LABS: HEMATOCRIT. 22.6 % (42.0-52.0); HEMOGLOBIN. 7.7 g/dL (14.0-18.0); MEAN CORPUSCULAR HEMOGLOBIN 35.5 pg (28.0-32.0); MEAN CORPUSCULAR HGB CONC 34.3 g/dL (31.0-37.0); MEAN CORPUSCULAR VOLUME 103.4 fL (80.0-94.0); MEAN PLATELET VOLUME 8.9 fl (7.4-10.4); RED BLOOD CELL COUNT 2.18 mill/uL (4.7-6.1); RED CELL DISTRIBUTION WIDTH 22.6 % (11.6-14.6); WHITE BLOOD COUNT 10.8 x1000/uL (4.5-11.0)
[2024-03-17 05:39] LABS: POTASSIUM 3.9 mEq/L (3.5-5.1)
[2024-03-17 05:41] LABS: CALCIUM 8.1 mg/dL (8.7-10.4)
[2024-03-17 06:03] LABS: CREATININE 6.3 mg/dL (0.6-1.3)
[2024-03-17 06:53] LABS: DIFFERENTIAL COMMENT 1
[2024-03-17 06:55] LABS: PLATELET 47 x1000/uL (130-400)
[2024-03-17] MEDS: ALBUMIN HUMAN 12.5GM/50ML (25%) IV SCH (17:25)
[2024-03-17 20:31] LABS: ANISOCYTOSIS 2+; PLATELET ESTIMATE MARKEDLY DECREASED
[2024-03-18] VITALS (110 sets, daily range): BP systolic 93–126; BP diastolic 36–92; PULSE 82–114; RESP 10–34; TEMP 36.55848–37.11408; O2SAT 84–98
[2024-03-18 06:24] LABS: AMMONIA 25 uMol/L (<32)
[2024-03-18 06:38] LABS: POTASSIUM 3.7 mEq/L (3.5-5.1)
[2024-03-18 06:53] LABS: INR 1.4; PROTHROMBIN TIME 15.5 sec (9.6-11.0)
[2024-03-18 07:20] LABS: CREATININE 5.4 mg/dL (0.6-1.3)
[2024-03-18 07:49] LABS: BASOPHILS % 0.8 % (0.0-2.0); EOSINOPHILS % 1.5 % (0.0-5.0); LYMPHOCYTES % 10.7 % (20.0-50.0); MEAN CORPUSCULAR HEMOGLOBIN 34.9 pg (28.0-32.0); MEAN CORPUSCULAR HGB CONC 34.4 g/dL (31.0-37.0); MEAN CORPUSCULAR VOLUME 101.4 fL (80.0-94.0); MEAN PLATELET VOLUME 9.5 fl (7.4-10.4); MONOCYTES % 12.7 % (2.0-8.0); NEUTROPHILS % 74.3 % (40.0-76.0); RED BLOOD CELL COUNT 2.01 mill/uL (4.7-6.1); RED CELL DISTRIBUTION WIDTH 21.6 % (11.6-14.6); WHITE BLOOD COUNT 11.4 x1000/uL (4.5-11.0)
[2024-03-18 08:09] LABS: DIFFERENTIAL COMMENT 1
[2024-03-18 08:14] LABS: HEMATOCRIT. 20.3 % (42.0-52.0)
[2024-03-18] MEDS: FOLIC ACID/VITAMIN B COMP W-C TABLET PO SCH (10:07)
[2024-03-18 11:41] LABS: PLATELET 40 x1000/uL (130-400)
[2024-03-18 18:57] LABS: INR 1.5; PROTHROMBIN TIME 16.2 sec (9.6-11.0)
[2024-03-18 19:06] LABS: HEMATOCRIT 22.8 % (42.0-52.0); HEMOGLOBIN 8.1 g/dL (14.0-18.0)
[2024-03-18] MEDS: EPOETIN ALFA-EPBX 4,000 UNIT/ML VIAL SUBCUT SCH (21:47)
[2024-03-19] VITALS (95 sets, daily range): BP systolic 79–111; BP diastolic 45–71; PULSE 80–111; RESP 12–25; TEMP 36.05844–37.00296; O2SAT 92–100
[2024-03-19 08:15] LABS: POTASSIUM 3.7 mEq/L (3.5-5.1)
[2024-03-19 08:16] LABS: CALCIUM 8.3 mg/dL (8.7-10.4)
[2024-03-19 08:23] LABS: AMMONIA 25 uMol/L (<32)
[2024-03-19 08:28] LABS: BASOPHILS % 0.5 % (0.0-2.0); EOSINOPHILS % 2.6 % (0.0-5.0); HEMATOCRIT. 23.4 % (42.0-52.0); HEMOGLOBIN. 8.1 g/dL (14.0-18.0); LYMPHOCYTES % 11.2 % (20.0-50.0); MEAN CORPUSCULAR HEMOGLOBIN 34.3 pg (28.0-32.0); MEAN CORPUSCULAR HGB CONC 34.7 g/dL (31.0-37.0); MEAN CORPUSCULAR VOLUME 98.8 fL (80.0-94.0); MEAN PLATELET VOLUME 8.5 fl (7.4-10.4); MONOCYTES % 13.5 % (2.0-8.0); NEUTROPHILS % 72.2 % (40.0-76.0); RED BLOOD CELL COUNT 2.37 mill/uL (4.7-6.1); RED CELL DISTRIBUTION WIDTH 21.2 % (11.6-14.6); WHITE BLOOD COUNT 11.2 x1000/uL (4.5-11.0)
[2024-03-19 08:41] LABS: DIFFERENTIAL COMMENT 1
[2024-03-19 08:43] LABS: PLATELET 47 x1000/uL (130-400)
[2024-03-19 09:50] LABS: CREATININE 6.5 mg/dL (0.6-1.3)
[2024-03-20] VITALS (97 sets, daily range): BP systolic 88–119; BP diastolic 49–79; PULSE 83–111; RESP 13–29; TEMP 36.6696–36.78072; O2SAT 79–99
[2024-03-20 12:49] LABS: BASOPHILS % 0.6 % (0.0-2.0); EOSINOPHILS % 3.1 % (0.0-5.0); HEMATOCRIT. 24.4 % (42.0-52.0); HEMOGLOBIN. 8.4 g/dL (14.0-18.0); LYMPHOCYTES % 11.5 % (20.0-50.0); MEAN CORPUSCULAR HEMOGLOBIN 34.5 pg (28.0-32.0); MEAN CORPUSCULAR HGB CONC 34.4 g/dL (31.0-37.0); MEAN CORPUSCULAR VOLUME 100.4 fL (80.0-94.0); MEAN PLATELET VOLUME 8.6 fl (7.4-10.4); MONOCYTES % 13.1 % (2.0-8.0); NEUTROPHILS % 71.7 % (40.0-76.0); PLATELET 55 x1000/uL (130-400); RED BLOOD CELL COUNT 2.43 mill/uL (4.7-6.1); WHITE BLOOD COUNT 10.4 x1000/uL (4.5-11.0)
[2024-03-20 12:54] LABS: POTASSIUM 3.5 mEq/L (3.5-5.1)
[2024-03-20 12:55] LABS: CALCIUM 8.1 mg/dL (8.7-10.4)
[2024-03-20 12:58] LABS: AMMONIA 42 uMol/L (<32)
[2024-03-20 13:07] LABS: CREATININE 6.7 mg/dL (0.6-1.3)
[2024-03-20 13:09] LABS: DIFFERENTIAL COMMENT 1
[2024-03-21] VITALS (36 sets, daily range): BP systolic 83–118; BP diastolic 56–83; PULSE 76–118; RESP 11–34; TEMP 36.50292–37.11408; O2SAT 91–100
[2024-03-21 06:18] LABS: AMMONIA 18 uMol/L (<32)
[2024-03-21 06:24] LABS: POTASSIUM 3.8 mEq/L (3.5-5.1)
[2024-03-21 06:26] LABS: CALCIUM 8.3 mg/dL (8.7-10.4)
[2024-03-21 06:43] LABS: BASOPHILS % 1.7 % (0.0-2.0); DIFFERENTIAL COMMENT 0; EOSINOPHILS % 4.5 % (0.0-5.0); HEMATOCRIT. 27.1 % (42.0-52.0); HEMOGLOBIN. 9.2 g/dL (14.0-18.0); LYMPHOCYTES % 16.7 % (20.0-50.0); MEAN CORPUSCULAR HEMOGLOBIN 34.5 pg (28.0-32.0); MEAN CORPUSCULAR HGB CONC 33.9 g/dL (31.0-37.0); MEAN CORPUSCULAR VOLUME 101.9 fL (80.0-94.0); MEAN PLATELET VOLUME 8.8 fl (7.4-10.4); MONOCYTES % 14.1 % (2.0-8.0); PLATELET 66 x1000/uL (130-400); RED BLOOD CELL COUNT 2.66 mill/uL (4.7-6.1); RED CELL DISTRIBUTION WIDTH 21.9 % (11.6-14.6); WHITE BLOOD COUNT 12.7 x1000/uL (4.5-11.0)
[2024-03-21 06:45] LABS: CREATININE 7.5 mg/dL (0.6-1.3)
[2024-03-21] MEDS: ALBUMIN HUMAN 25GM/100ML (25%) IV NR (08:39)
[2024-03-21] MEDS: SODIUM BICARBONATE 4% 2.4MEQ/5ML VIAL IV ONE (10:49)
[2024-03-21] MEDS: LIDOCAINE HCL 1% 10 MG/ML 10ML VIAL ONE (10:49)
[2024-03-22] VITALS (11 sets, daily range): BP systolic 100–118; BP diastolic 57–72; PULSE 94–128; RESP 20–28; TEMP 36.00288–37.94748; O2SAT 90–100
[2024-03-22 07:50] LABS: AMMONIA 26 uMol/L (<32)
[2024-03-22 07:57] LABS: CHLORIDE 106 mEq/L (98-107); POTASSIUM 3.9 mEq/L (3.5-5.1); SODIUM 141 mEq/L (136-145)
[2024-03-22 07:58] LABS: CARBON DIOXIDE 23 mEq/L (21-32)
[2024-03-22 07:59] LABS: CALCIUM 8.5 mg/dL (8.7-10.4)
[2024-03-22 08:03] LABS: GLUCOSE 78 mg/dL (70-105); UREA NITROGEN BLOOD 44 mg/dL (9-23)
[2024-03-22 08:05] LABS: ALANINE AMINOTRANSFERASE 12 IU/L (10-49); ALBUMIN 2.6 g/dL (3.2-4.8); ASPARTATE AMINOTRANSFERASE 67 IU/L (<34)
[2024-03-22 08:08] LABS: CREATININE 8.4 mg/dL (0.6-1.3)
[2024-03-22 08:24] LABS: BASOPHILS % 1.2 % (0.0-2.0); DIFFERENTIAL COMMENT 0; EOSINOPHILS % 5.6 % (0.0-5.0); HEMATOCRIT. 22.7 % (42.0-52.0); HEMOGLOBIN. 7.8 g/dL (14.0-18.0); LYMPHOCYTES % 15.4 % (20.0-50.0); MEAN CORPUSCULAR HEMOGLOBIN 34.8 pg (28.0-32.0); MEAN CORPUSCULAR HGB CONC 34.4 g/dL (31.0-37.0); MEAN CORPUSCULAR VOLUME 101.3 fL (80.0-94.0); MEAN PLATELET VOLUME 8.6 fl (7.4-10.4); MONOCYTES % 14.3 % (2.0-8.0); NEUTROPHILS % 63.5 % (40.0-76.0); PLATELET 77 x1000/uL (130-400); RED BLOOD CELL COUNT 2.24 mill/uL (4.7-6.1); RED CELL DISTRIBUTION WIDTH 21.8 % (11.6-14.6); WHITE BLOOD COUNT 11.7 x1000/uL (4.5-11.0)
[2024-03-22] MEDS: FLUDROCORTISONE ACETATE 0.1MG TABLET PO SCH (09:00)
[2024-03-23] VITALS: BP 97/50; PULSE 91; RESP 18; TEMP 36.78072; O2SAT 99
[2024-03-23 04:00] VITALS: BP 97/58; PULSE 91; RESP 18; TEMP 36.83628; O2SAT 99
[2024-03-23 08:00] VITALS: BP 93/79; PULSE 93; RESP 20; TEMP 36.6696; O2SAT 99
[2024-03-23 08:39] LABS: INR 1.5; PROTHROMBIN TIME 16.6 sec (9.6-11.0)
[2024-03-23 08:54] LABS: POTASSIUM 3.8 mEq/L (3.5-5.1)
[2024-03-23 08:56] LABS: CALCIUM 8.2 mg/dL (8.7-10.4)
[2024-03-23 09:07] LABS: HEMATOCRIT. 23.6 % (42.0-52.0); HEMOGLOBIN. 8.1 g/dL (14.0-18.0); MEAN CORPUSCULAR HEMOGLOBIN 34.9 pg (28.0-32.0); MEAN CORPUSCULAR HGB CONC 34.4 g/dL (31.0-37.0); MEAN CORPUSCULAR VOLUME 101.4 fL (80.0-94.0); MEAN PLATELET VOLUME 8.5 fl (7.4-10.4); PLATELET 63 x1000/uL (130-400); RED BLOOD CELL COUNT 2.33 mill/uL (4.7-6.1); RED CELL DISTRIBUTION WIDTH 21.5 % (11.6-14.6); WHITE BLOOD COUNT 11.6 x1000/uL (4.5-11.0)
[2024-03-23 09:18] LABS: DIFFERENTIAL COMMENT 1
[2024-03-23 09:53] LABS: CREATININE 7.3 mg/dL (0.6-1.3)
[2024-03-23 12:00] VITALS: BP 107/52; PULSE 95; RESP 20; TEMP 36.6696; O2SAT 99
[2024-03-23 16:00] VITALS: BP 99/48; PULSE 98; RESP 20; TEMP 36.78072; O2SAT 100
[2024-03-23 17:10] LABS: PLATELET ESTIMATE DECREASED
[2024-03-23 20:00] VITALS: BP 102/67; PULSE 95; TEMP 37.16964; O2SAT 100
[2024-03-24] VITALS: BP 103/40; PULSE 100; RESP 19; TEMP 36.83628; O2SAT 100
[2024-03-24 04:00] VITALS: BP 100/54; PULSE 94; RESP 21; TEMP 36.9474; O2SAT 100
[2024-03-24 08:00] VITALS: BP 96/57; PULSE 99; RESP 22; TEMP 36.6696; O2SAT 98
[2024-03-24] MEDS: SODIUM BICARBONATE 4% 2.4MEQ/5ML VIAL IV ONE (08:58)
[2024-03-24] MEDS: HEPARIN 1000 UNITS/ML 10ML ONE (08:58)
[2024-03-24] MEDS: LIDOCAINE HCL 1% 10 MG/ML 10ML VIAL ONE ×2 (08:58→08:59)
[2024-03-24] MEDS ORDERED: GUAIFENESIN-DM 200MG-20MG/10ML UDC PO PRN (09:45)
[2024-03-24] MEDS: BENZONATATE 100MG CAPSULE PO PRN (09:58)
[2024-03-24 11:07] LABS: CHLORIDE 103 mEq/L (98-107); POTASSIUM 3.8 mEq/L (3.5-5.1); SODIUM 136 mEq/L (136-145)
[2024-03-24 11:08] LABS: CALCIUM 7.9 mg/dL (8.7-10.4); CARBON DIOXIDE 23 mEq/L (21-32); HEMATOCRIT. 24.8 % (42.0-52.0); HEMOGLOBIN. 8.3 g/dL (14.0-18.0); MEAN CORPUSCULAR HEMOGLOBIN 33.9 pg (28.0-32.0); MEAN CORPUSCULAR HGB CONC 33.4 g/dL (31.0-37.0); MEAN CORPUSCULAR VOLUME 101.5 fL (80.0-94.0); MEAN PLATELET VOLUME 8.9 fl (7.4-10.4); PLATELET 88 x1000/uL (130-400); RED BLOOD CELL COUNT 2.44 mill/uL (4.7-6.1); RED CELL DISTRIBUTION WIDTH 21.6 % (11.6-14.6); WHITE BLOOD COUNT 11.3 x1000/uL (4.5-11.0)
[2024-03-24 11:11] LABS: DIFFERENTIAL COMMENT 1
[2024-03-24 11:13] LABS: GLUCOSE 157 mg/dL (70-105); UREA NITROGEN BLOOD 55 mg/dL (9-23)
[2024-03-24 11:15] LABS: ALANINE AMINOTRANSFERASE 20 IU/L (10-49); ALBUMIN 2.3 g/dL (3.2-4.8); ASPARTATE AMINOTRANSFERASE 81 IU/L (<34); BILIRUBIN TOTAL 16.6 mg/dL (0.1-1.0)
[2024-03-24 11:16] LABS: PROTEIN TOTAL 6.1 g/dL (6.0-8.3)
[2024-03-24 11:18] LABS: CREATININE 7.8 mg/dL (0.6-1.3)
[2024-03-24 12:00] VITALS: BP 100/47; PULSE 112; RESP 22; TEMP 36.89184; O2SAT 95
[2024-03-24 16:00] VITALS: BP 96/35; PULSE 86; RESP 16; TEMP 36.6696; O2SAT 100
[2024-03-24 20:00] VITALS: BP 97/54; PULSE 87; RESP 17; TEMP 36.83628; O2SAT 98
[2024-03-24 21:26] LABS: ANISOCYTOSIS 3+; NUCLEATED RED BLOOD CELLS 1 /100 WBC; PLATELET ESTIMATE DECREASED
[2024-03-25] VITALS (19 sets, daily range): BP systolic 89–110; BP diastolic 45–68; PULSE 82–112; RESP 13–24; TEMP 36.44736–37.00296; O2SAT 95–100
[2024-03-25] MEDS ORDERED: LACT10SO7 MT (09:47)
[2024-03-25] MEDS ORDERED: MIDO10TA3 MT (09:47)
[2024-03-25 12:07] LABS: HEMATOCRIT. 25.5 % (42.0-52.0); HEMOGLOBIN. 8.6 g/dL (14.0-18.0); MEAN CORPUSCULAR HEMOGLOBIN 34.6 pg (28.0-32.0); MEAN CORPUSCULAR HGB CONC 33.6 g/dL (31.0-37.0); MEAN CORPUSCULAR VOLUME 103.2 fL (80.0-94.0); MEAN PLATELET VOLUME 9.1 fl (7.4-10.4); PLATELET 102 x1000/uL (130-400); RED BLOOD CELL COUNT 2.47 mill/uL (4.7-6.1); RED CELL DISTRIBUTION WIDTH 21.9 % (11.6-14.6); WHITE BLOOD COUNT 10.5 x1000/uL (4.5-11.0)
[2024-03-25 12:09] LABS: DIFFERENTIAL COMMENT 1
[2024-03-25 12:12] LABS: INR 1.4; PROTHROMBIN TIME 15.2 sec (9.6-11.0)
[2024-03-25 12:20] LABS: CHLORIDE 103 mEq/L (98-107); POTASSIUM 3.9 mEq/L (3.5-5.1); SODIUM 136 mEq/L (136-145)
[2024-03-25 12:21] LABS: CARBON DIOXIDE 21 mEq/L (21-32)
[2024-03-25 12:22] LABS: CALCIUM 8.3 mg/dL (8.7-10.4)
[2024-03-25 12:26] LABS: GLUCOSE 138 mg/dL (70-105); UREA NITROGEN BLOOD 59 mg/dL (9-23)
[2024-03-25 12:28] LABS: ALANINE AMINOTRANSFERASE 24 IU/L (10-49); ALBUMIN 2.3 g/dL (3.2-4.8); ASPARTATE AMINOTRANSFERASE 94 IU/L (<34)
[2024-03-25 12:29] LABS: BILIRUBIN TOTAL 15.7 mg/dL (0.1-1.0); PROTEIN TOTAL 6.1 g/dL (6.0-8.3)
[2024-03-25] MEDS ORDERED: LIDOCAINE HCL 1% 10 MG/ML 10ML VIAL ONE (13:16)
[2024-03-25 13:43] LABS: CREATININE 8.5 mg/dL (0.6-1.3)
[2024-03-25] MEDS: CEFAZOLIN 1000MG PREMIX 50 ML IV NR (13:45)
[2024-03-25 18:45] LABS: ANISOCYTOSIS 1+; PLATELET ESTIMATE SLIGHTLY DECREASED
[2024-03-26] VITALS: BP 99/52; PULSE 89; RESP 13; TEMP 36.55848; O2SAT 100
[2024-03-26 04:00] VITALS: BP 98/56; PULSE 88; RESP 12; TEMP 36.55848; O2SAT 99
[2024-03-26 08:00] VITALS: BP 97/57; PULSE 78; RESP 12; TEMP 36.72516; O2SAT 100
[2024-03-26 08:41] LABS: HEMATOCRIT. 21.7 % (42.0-52.0); HEMOGLOBIN. 7.4 g/dL (14.0-18.0); MEAN CORPUSCULAR HEMOGLOBIN 34.7 pg (28.0-32.0); MEAN CORPUSCULAR HGB CONC 34.2 g/dL (31.0-37.0); MEAN CORPUSCULAR VOLUME 101.3 fL (80.0-94.0); PLATELET 79 x1000/uL (130-400); RED BLOOD CELL COUNT 2.15 mill/uL (4.7-6.1); RED CELL DISTRIBUTION WIDTH 21.7 % (11.6-14.6); WHITE BLOOD COUNT 12.5 x1000/uL (4.5-11.0)
[2024-03-26 08:50] LABS: CHLORIDE 108 mEq/L (98-107); POTASSIUM 3.7 mEq/L (3.5-5.1); SODIUM 141 mEq/L (136-145)
[2024-03-26 08:51] LABS: CARBON DIOXIDE 23 mEq/L (21-32)
[2024-03-26 08:52] LABS: CALCIUM 8.1 mg/dL (8.7-10.4)
[2024-03-26 08:56] LABS: UREA NITROGEN BLOOD 50 mg/dL (9-23)
[2024-03-26 08:58] LABS: ALANINE AMINOTRANSFERASE 24 IU/L (10-49); ALBUMIN 2.2 g/dL (3.2-4.8); ASPARTATE AMINOTRANSFERASE 94 IU/L (<34)
[2024-03-26 08:59] LABS: PROTEIN TOTAL 6.1 g/dL (6.0-8.3)
[2024-03-26 09:06] LABS: DIFFERENTIAL COMMENT 1
[2024-03-26 09:13] LABS: GLUCOSE 93 mg/dL (70-105)
[2024-03-26 09:14] LABS: CREATININE 7.3 mg/dL (0.6-1.3)
[2024-03-26 09:15] LABS: BILIRUBIN TOTAL 13.8 mg/dL (0.1-1.0)
[2024-03-26 11:22] VITALS: BP 97/57; PULSE 78; TEMP 98.1; O2SAT 100
[2024-03-26 15:18] LABS: PLATELET ESTIMATE SLIGHTLY DECREASED
== END 2024-03-26 13:43 | disposition home or self-care (01) | DRG 720 ==
LOC: ER 17:09 → MICUSO 19:46 → EDBEDREQ 19:56 → EDBEDREQTM 19:56 → 7EST 02-25 15:41 → 5EST 02-28 12:40 → CVICU 03-02 18:45 → 3WST 03-21 13:07
PROVIDERS: ADMIT Internal Medicine; ATTEND Internal Medicine
PROC: 0W9G3ZZ Drainage of Peritoneal Cavity, Percutaneous Approach (ICD-10-PCS; principal; 2024-02-26)
PROC: B5181ZA Fluoroscopy of Superior Vena Cava using Low Osmolar Contrast, Guidance (ICD-10-PCS; 2024-02-29)
PROC: 02HV33Z Insertion of Infusion Device into Superior Vena Cava, Percutaneous Approach (ICD-10-PCS; 2024-02-29)
PROC: B548ZZA Ultrasonography of Superior Vena Cava, Guidance (ICD-10-PCS; 2024-02-29)
PROC: 5A1D70Z Performance of Urinary Filtration, Intermittent, Less than 6 Hours Per Day (ICD-10-PCS; 2024-02-29)
PROC: 02HV33Z Insertion of Infusion Device into Superior Vena Cava, Percutaneous Approach (ICD-10-PCS; 2024-03-03)
PROC: B548ZZA Ultrasonography of Superior Vena Cava, Guidance (ICD-10-PCS; 2024-03-03)
PROC: 5A1D70Z Performance of Urinary Filtration, Intermittent, Less than 6 Hours Per Day (ICD-10-PCS; 2024-03-03)
PROC: 5A1D70Z Performance of Urinary Filtration, Intermittent, Less than 6 Hours Per Day (ICD-10-PCS; 2024-03-05)
PROC: 5A1D70Z Performance of Urinary Filtration, Intermittent, Less than 6 Hours Per Day (ICD-10-PCS; 2024-03-07)
PROC: 5A1D70Z Performance of Urinary Filtration, Intermittent, Less than 6 Hours Per Day (ICD-10-PCS; 2024-03-09)
PROC: 30233N1 Transfusion of Nonautologous Red Blood Cells into Peripheral Vein, Percutaneous Approach (ICD-10-PCS; 2024-03-11)
PROC: 5A1D70Z Performance of Urinary Filtration, Intermittent, Less than 6 Hours Per Day (ICD-10-PCS; 2024-03-11)
PROC: 5A1D70Z Performance of Urinary Filtration, Intermittent, Less than 6 Hours Per Day (ICD-10-PCS; 2024-03-13)
PROC: 5A1D70Z Performance of Urinary Filtration, Intermittent, Less than 6 Hours Per Day (ICD-10-PCS; 2024-03-14)
PROC: 5A1D70Z Performance of Urinary Filtration, Intermittent, Less than 6 Hours Per Day (ICD-10-PCS; 2024-03-16)
PROC: 5A1D70Z Performance of Urinary Filtration, Intermittent, Less than 6 Hours Per Day (ICD-10-PCS; 2024-03-19)
PROC: 0W9G3ZZ Drainage of Peritoneal Cavity, Percutaneous Approach (ICD-10-PCS; 2024-03-21)
PROC: 5A1D70Z Performance of Urinary Filtration, Intermittent, Less than 6 Hours Per Day (ICD-10-PCS; 2024-03-22)
PROC: 05PYX3Z Removal of Infusion Device from Upper Vein, External Approach (ICD-10-PCS; 2024-03-25)
PROC: 02HV33Z Insertion of Infusion Device into Superior Vena Cava, Percutaneous Approach (ICD-10-PCS; 2024-03-25)
PROC: 0JH63XZ Insertion of Tunneled Vascular Access Device into Chest Subcutaneous Tissue and Fascia, Percutaneous Approach (ICD-10-PCS; 2024-03-25)
PROC: B5181ZA Fluoroscopy of Superior Vena Cava using Low Osmolar Contrast, Guidance (ICD-10-PCS; 2024-03-25)
PROC: 05PY33Z Removal of Infusion Device from Upper Vein, Percutaneous Approach (ICD-10-PCS; 2024-03-25)
PROC: 5A1D70Z Performance of Urinary Filtration, Intermittent, Less than 6 Hours Per Day (ICD-10-PCS; 2024-03-25)
DX: A41.51 Sepsis due to Escherichia coli [E. coli] (principal); J96.01 Acute respiratory failure with hypoxia; R65.21 Severe sepsis with septic shock; G93.41 Metabolic encephalopathy; K70.40 Alcoholic hepatic failure without coma; K65.2 Spontaneous bacterial peritonitis; D68.9 Coagulation defect, unspecified; K76.82 Hepatic encephalopathy; I85.10 Secondary esophageal varices without bleeding; D69.6 Thrombocytopenia, unspecified; E87.1 Hypo-osmolality and hyponatremia; I13.11 Hypertensive heart and chronic kidney disease without heart failure, with stage 5 chronic kidney disease, or end stage renal disease; E88.09 Other disorders of plasma-protein metabolism, not elsewhere classified; K74.60 Unspecified cirrhosis of liver; E87.6 Hypokalemia; D53.9 Nutritional anemia, unspecified; Y90.8 Blood alcohol level of 240 mg/100 ml or more; F10.129 Alcohol abuse with intoxication, unspecified; K52.9 Noninfective gastroenteritis and colitis, unspecified; N39.0 Urinary tract infection, site not specified; N18.6 End stage renal disease; Z59.02 Unsheltered homelessness; T51.91XA Toxic effect of unspecified alcohol, accidental (unintentional), initial encounter; R16.2 Hepatomegaly with splenomegaly, not elsewhere classified; G35 Multiple sclerosis; B96.20 Unspecified Escherichia coli [E. coli] as the cause of diseases classified elsewhere; D63.8 Anemia in other chronic diseases classified elsewhere; F17.210 Nicotine dependence, cigarettes, uncomplicated; X58.XXXD Exposure to other specified factors, subsequent encounter; J98.11 Atelectasis; F41.9 Anxiety disorder, unspecified; R18.8 Other ascites; K76.6 Portal hypertension; Y92.89 Other specified places as the place of occurrence of the external cause; S22.32XD Fracture of one rib, left side, subsequent encounter for fracture with routine healing; F10.10 Alcohol abuse, uncomplicated; N17.9 Acute kidney failure, unspecified
CPT/HCPCS: 36415; 36556; 36558; 36589; 36600; 49083; 71045; 74176; 76604; 76700; 76705; 76937; 77001; 80048; 80053; 80076; 80320; 81003; 82105; 82140; 82247; 82270; 82375; 82550; 82607; 82728; 82746; 82805; 82962; 83540; 83550; 83605; 83615; 83735; 83880; 83930; 83935; 84100; 84145; 84484; 85014; 85018; 85025; 85027; 85044; 85049; 85384; 86705; 86706; 86709; 86850; 86900; 86920; 87015; 87045; 87077; 87177; 87186; 87209; 87340; 87427; 87449; 89055; 90935; 93005; 99285; A4565; A4606; A4663; A6261; C1750; C1752; C1769; C1893; J0690; J0696; J0885; J1642; J1644; J2003; J2060; J2185; J2270; J2354; J2405; J2543; J3430; J3490; J7030; J7042; J7050; J7060; P9016; P9047; G0480